=== PATIENT | female | born 1930 | race Caucasian/White ===

== ENCOUNTER 2017-04-17 11:57 | Emergency (ER) | payer MEDICARE, OTHER ==
[~2017-04-17] VITALS: Ht 162.6 cm; Wt 90.7 kg
[2017-04-17] MEDS ORDERED: COUMADIN5 MG PO (12:18)
[2017-04-17] MEDS ORDERED: GLUCOPHAGE1000 MG PO (12:20)
[2017-04-17] MEDS ORDERED: SIMVASTATIN20 MG PO (12:21)
[2017-04-17] MEDS ORDERED: OMEPRAZOLE20 MG PO (12:22)
[2017-04-17] MEDS ORDERED: FUROSEMIDE20 MG PO (15:39)
[2017-04-17] MEDS ORDERED: K-TAB ER20 MEQ PO (15:39)
--- NOTE | 2017-04-17 20:26 | EKG ---
[facility] [address] [place], [place] [address] Signed Sinus rhythm with 1st degree AV block Left bundle branch block Abnormal ECG No previous ECGs available Confirmed by TAL WOODRUFF MD ([id number]) on 04/17/2017 8:26:36 PM Electronically Signed By: TAL WOODRUFF MD 04/17/172025 PATIENT NAME: HAYDEN CRUZ Electrocardiogram DATE OF : 34 PHYSICIAN: TAL WOODRUFF MD REPORT #: [id number] REPORT IS CONFIDENTIAL AND NOT TO BE RELEASED WITHOUT AUTHORIZATION
== END 2017-04-17 16:05 | disposition home or self-care (01) ==
LOC: ED 11:57
DX: I50.9 Heart failure, unspecified (principal); Z79.01 Long term (current) use of anticoagulants; Z79.899 Other long term (current) drug therapy
CPT/HCPCS: 71020; 80053; 83880; 84484; 85025; 85379; 85610; 93005; 93010; 96374; 99284

== ENCOUNTER 2020-08-31 16:19 | Inpatient (IN) | payer MEDICARE, OTHER, MEDICAID ==
[~2020-08-31] VITALS: Ht 157.5 cm; Wt 90.6 kg
[~2020-08-31 16:19] MED LIST: COUMADIN5 MG PO; FUROSEMIDE20 MG PO; GLUCOPHAGE1000 MG PO; K-TAB ER20 MEQ PO; OMEPRAZOLE20 MG PO; SIMVASTATIN20 MG PO
[2020-08-31] MEDS ORDERED: FUROSEMIDE40 MG PO (18:09)
[2020-08-31] MEDS ORDERED: BISOPROLOL FUMAR5 MG PO (18:09)
[2020-08-31] MEDS ORDERED: SPIRONOLACTONE25 MG PO (18:10)
[2020-08-31] MEDS ORDERED: LOSARTAN POTASS25 MG PO (18:10)
[2020-08-31] MEDS ORDERED: INVOKANA100 MG PO (18:10)
--- NOTE | 2020-08-31 20:18 | NUR ---
PT ARRIVES TO UNIT VIA STRETCHER WITH BELONGINGS IN HAND, DAUGHTER AT BEDSIDE. DATABASE DBA IN ROOM TO ASSIST WITH ADMISSION. VITALS ASSESSED, ORIENTED TO ROOM AND ASSESSMENT COMPLETE. ON 2 L O2 VIA NC. PT ABLE TO AMBULATE WITH SBA TO BR TO VOID. LAB IN ROOM FOR DRAW, CALL LIGHT IN REACH
--- NOTE | 2020-08-31 21:40 | NUR ---
Scheduled medications adminstered, insulin per SS given. Pt resting in bed, states no pain or needs at this time. IVF infusing WNL, ABX initiated. Water and warm blankets provided. Pt daughter left for night. Pt oriented and alert, call light in hand.
--- NOTE | 2020-08-31 22:49 | NUR ---
IVF ABX infusing. pt resting in bed with eyes closed, even respirations, states no pain or nausea. Call light in reach
--- NOTE | 2020-09-01 00:05 | NUR ---
IV pump alarming, error resolved. pt resting in bed with eyes closed, no apparent needs
--- NOTE | 2020-09-01 02:00 | NUR ---
Vitals taken, pt ambulates to BR to void with SBA. IVF infusing WNL. Water refilled. Assessment complete, condition unchanged. No further needs at this time. Call light in reach
--- NOTE | 2020-09-01 06:05 | NUR ---
Orthostatic pressures complete, negative, pt reports no dizziness and ambulates to BR to void with SBA to assist with IV pole. Pt states feeling better since being admitted and denies nausea, stomach upset or dizziness. Will continue to monitor.
--- NOTE | 2020-09-01 07:17 | NUR ---
SHIFT REPORT FROM NURSE BUCKLEY. PT LAYING IN BED, APPEARS TO BE SLEEPING; EYES CLOSED, EVEN BREATHING NOTED. CALL LIGHT WITHIN REACH.
--- NOTE | 2020-09-01 07:54 | NUR ---
IN ROOM FOR MORNING ASSESSMENT AND REAL ESTATE AGENCY PRINCIPAL. PT STATES SHE FEELS "MUCH BETTER TODAY". CBG 186 REQUIRING 2UNITS SS INSULIN. LUNG SOUNDS CLEAR. NO BM FOR SAMPLE UNTIL NOW. BOWEL TONES ACTIVE. CMS INTACT. PT IS ALERT AND ORIENTED X4. BREAKFAST ORDERED. CALL LIGHT WITHIN REACH.
--- NOTE | 2020-09-01 09:05 | NUR ---
TITRATE IV FLUIDS TO 75ML/HR ORDERED. PT ATE 90% OF BREAKFAST. DENIES NEEDS.
--- NOTE | 2020-09-01 09:28 | NUR ---
PATIENT SITTING UP IN BED. IV LEAKING AND ARM LOOKS A LITTLE PUFFY, CHRAGE NURSE NOTIFIED RIGHT AWAY. VITALS AND I&O'S CHARTED. CALL LIGHT IN REACH. NO FURTHER NEEDS AT THIS TIME.
--- NOTE | 2020-09-01 11:20 | NUR ---
CHECKED ON PT. PT UP TO TOILET TO VOID. 300ML CLEAR YELLOW URINE. PT'S DAUGHTER IN ROOM. PT RETURNED TO BED. CALL LIGHT WITHIN REACH.
[2020-09-01] MEDS ORDERED: POTASSIUM CHLO20 ME1 PO (13:10)
[2020-09-01] MEDS ORDERED: VITAMIN D325 MCG PO (13:31)
--- NOTE | 2020-09-01 13:32 | NUR ---
MED REC COMPLETE
--- NOTE | 2020-09-01 14:04 | NUR ---
CHECKED ON PT LINK KNITTING MACHINE OPERATOR HAD INFORMED THIS NURSE THAT PT FELT "A LITTLE SICK TO HER STOMACH". PT REPORTS THE FEELING HAS PASSED SHE BELIEVES IT IS JUST FROM EATING A LARGE SALAD FOR LUNCH. WILL CONTINUE TO MONITOR.
--- NOTE | 2020-09-01 16:45 | NUR ---
SPOKE WITH PATIENT AND DAUGHTER IN ROOM. PATIENT LIVES IN [facility]. DAUGHTER LIVES WITH HER. DAUGHTER WORKS. THEY STATE THEY CAN GET HELP IF SHE NEEDS SOME DURING THE DAY. PATIENT IS RETIRED, STILL DRIVES. HOME HAS 4 STEPS IN, NONE INSIDE. PATIENT USES A CANE MOSTLY. HAS A FWW AT HOME TO USE IF NEEDED. HAS TUB/SHOWER COMBO WITH SHOWER CHAIR. THEY DENY FINANCIAL PROBLEMS AFFORDING MEDS/FOOD/UTILITIES. PATIENT STATES HER PCP HAS MOVED, AND SHE IS GETTING A NEW ONE SOMETIME AROUND THE . BUT IT IS AT [facility] SO HER RECORDS ARE THERE. PATIENT PLANS TO RETURN HOME AT DISCHARGE, DAUGHTER WILL DRIVE. SHE FEELS MUCH BETTER TODAY, HAS BEEN UP IN ROOM AND FEELS STEADY ON HER FEET. CM WILL FOLLOW NEEDED.
--- NOTE | 2020-09-01 17:10 | NUR ---
IN ROOM FOR EVENING MEDS AND ASSESSMENT. PT IS IN GOOD SPIRITS, EATING DINNER WITH DAUGHTER IN ROOM. CBG 148 REQUIRING 1UNIT SS INSULIN. PT DENIES FURTHER NEEDS AT THIS TIME. CALL LIGHT WITHIN REACH.
--- NOTE | 2020-09-01 18:17 | NUR ---
PATIENT IN BED WATCHING TV. DAUGHTER IN ROOM. VITALS AND I&O'S CHARTED. CALL LIGHT IN REACH. FRESH WATER GIVEN. NO FURTHER NEEDS AT THIS TIME.
--- NOTE | 2020-09-01 19:00 | NUR ---
CHARGE NURSE REPORT RECEIVED.
--- NOTE | 2020-09-01 19:13 | EKG ---
[facility] [address] [facility] [place] [address] Signed AV dual-paced rhythm Abnormal ECG Confirmed by TAL WOODRUFF MD ([id number]) on 09/01/2020 7:13:08 PM Electronically Signed By: TAL WOODRUFF MD 09/01/203 PATIENT NAME: HAYDEN CRUZ Electrocardiogram DATE OF : 34 PHYSICIAN: TAL WOODRUFF MD REPORT #: [id number] REPORT IS CONFIDENTIAL AND NOT TO BE RELEASED WITHOUT AUTHORIZATION
--- NOTE | 2020-09-01 19:44 | NUR ---
BEDSIDE REPORT RECEIVED FROM CLAUDINE OSHEA. pt RESTING IN BED AWAKE. DAUGHTER AT BEDSIDE. IVF INFUSING WNL. pt HAS NO REQUESTS AT THIS TIME.
--- NOTE | 2020-09-01 20:50 | NUR ---
NEW BAG IV FLUIDS INFUSING IN PT ROOM. PT VISITING, STATES SHE FEELS BETTER THAN SHE DID WHEN SHE GOT HERE. FROM [place], DAUGHTER HAD APPOINTMENT IN TOWN. PT STATES SHE KNOWS HOW TO GET AH[employer] OF STAFF.
--- NOTE | 2020-09-01 21:19 | NUR ---
IN pt ROOM FOR SCHEDULED MEDICATION ADMINISTRATION. SBA TO RESTROOM FOR VOID AND BACK TO BED. pt DENIES PAIN, DENIES NAUSEA. BOWEL TONES ACTIVE. IV FLUSHED WNL, GOOD BLOOD RETURN. IV ANTIBIOTIC INFUSING ORDERED. SCHEDULED MEDICATION ADMINSITERED. CALL LIGHT IN REACH.
--- NOTE | 2020-09-01 22:15 | NUR ---
IV ANTIBIOTIC COMPLETE. IV FLAGYL NOW INFUSING WNL. pt DROWSY, RESTING IN BED WITH EYES CLOSED. NO NEEDS AT THIS TIME. CALL LIGHT WITHIN REACH.
--- NOTE | 2020-09-02 00:40 | NUR ---
CHECKED ON pt. RESTING IN BED WITH EYES CLOSED. BREATHING EQUAL AND UNLABORED. LIGHTS OFF IN ROOM. IVF INFUSING WNL.
--- NOTE | 2020-09-02 00:45 | NUR ---
CALL LIGHT ANSWERED. 1 PA TO THE BATHROOM AND BACK TO BED. NO OTHER NEEDS AT THIS TIME.
--- NOTE | 2020-09-02 02:42 | NUR ---
CHECKED ON pt. RESTING IN BED WITH EYES CLOSED. RR 14. LIGHTS OFF IN ROOM.
--- NOTE | 2020-09-02 05:44 | NUR ---
pt SLEEPING. AWAKENS TO VOICE. SBA TO RESTROOM FOR VOID AND BACK TO BED. VSS. ASSESSMENT COMPLETE. IVF INFUSING WNL. IV ANTIBIOTIC NOW INFUSING ORDERED. pt DENIES PAIN, DENIES NAUSEA. CALL LIGHT IN REACH. STORE RECEIVING CLERK IN ROOM.
--- NOTE | 2020-09-02 05:49 | NUR ---
pt RESTED WELL THROUGHOUT SHIFT. NO COMPLAINTS OF NAUSEA OR PAIN. SBA TO RESTROOM FOR QS VOIDS. IVF INFUSING WNL, IV SITE WITH GOOD BLOOD RETURN. IV ANTIBIOTICS. pt ALERT AND ORIENTED.
--- NOTE | 2020-09-02 07:05 | NUR ---
BEDSIDE HANDOFF REPORT RECEIVED FROM DISPLAY AND BANNER DESIGNER RN. PT RESTING IN BED. PT DENIES NEEDS AT THIS TIME.
--- NOTE | 2020-09-02 08:45 | NUR ---
PT RETURNING FROM BATHROOM, PT HAD BM BUT MIXED WITH URINE, LAB WILL NOT ACCEPT A SAMPLE. PT ON ROOM AIR, LUNG SOUNDS CLEAR. PT DENIES PAIN. CMS INTACT. 2 UNITS INSULIN GIVEN FOR BG 192, PT WITH GOOD APPETITE, ATE BREAKFAST. IV FLUIDS INFUSING NS AT 75ML/HR. PT DENIES OTHER NEEDS AT THIS TIME.
--- NOTE | 2020-09-02 09:13 | NUR ---
REQUESTED LABS FROM PATIENTS PRIMARY CARE PHYSICIAN. HIS NAME IS JOYCE AMYTOMA AT [facility], PHONE [phone].
--- NOTE | 2020-09-02 09:29 | NUR ---
PATIENT SITTING UP IN CHAIR, DAUGHTER IN ROOM. VITALS AND I&O'S CHARTED. CALL LIGHT IN REACH. NO FURTHER NEEDS AT THIS TIME. WARM WASHCLOTH GIVEN.
--- NOTE | 2020-09-02 10:00 | NUR ---
Spoke with Maia. She cont. to deny any needs. Daughter lives with her 5 miles from [place], [place]. Pt plans on dc to home with daughter when cleared medically.
[2020-09-02] MEDS ORDERED: CIPROFLOXACIN500 MG PO (11:15)
[2020-09-02] MEDS ORDERED: METRONIDAZOLE500 MG PO (11:16)
--- NOTE | 2020-09-02 11:20 | NUR ---
DR. WOODRUFF TO BEDSIDE, PLAN FOR DISCHARGE TODAY.
--- NOTE | 2020-09-02 12:25 | NUR ---
IV CATH REMOVED. PT GIVEN 2 UNITS SS HUMALOG. DISCHARGE INSTRUCTIONS REVIEWED WITH PT. DAUGHTER HAS APPOINTMENT AND WILL CALL BIB SHE IS DONE FOR DISCHARGE.
== END 2020-09-02 13:40 | disposition home or self-care (01) | DRG 372 ==
LOC: ED 16:19 → MS 19:45
PROVIDERS: ADMIT Internal Medicine; ATTEND Internal Medicine
DX: A04.9 Bacterial intestinal infection, unspecified (principal); N17.9 Acute kidney failure, unspecified; I50.22 Chronic systolic (congestive) heart failure; Z20.822 Contact with and (suspected) exposure to COVID-19; E87.5 Hyperkalemia; I95.1 Orthostatic hypotension; E86.0 Dehydration; E11.65 Type 2 diabetes mellitus with hyperglycemia; K21.9 Gastro-esophageal reflux disease without esophagitis; I49.8 Other specified cardiac arrhythmias; E11.22 Type 2 diabetes mellitus with diabetic chronic kidney disease; N18.32 Chronic kidney disease, stage 3b; Z79.899 Other long term (current) drug therapy; Z95.0 Presence of cardiac pacemaker
CPT/HCPCS: 36415; 80048; 80053; 81001; 83036; 83690; 84484; 85025; 93005; 93010; C9803; J0744; J1650; J1815; J2405; J7030; J7040; U0003